=== PATIENT | female | born 1945 | race Two or more races ===

== ENCOUNTER 2024-10-27 08:52 | Emergency (ER) | payer OTHER ==
[~2024-10-27] VITALS: Ht 175.3 cm; Wt 114.2 kg
--- NOTE | 2024-10-27 10:06 | ED.PDOC ---
Musculoskeletal HPI Comments A 79 year old female presents to the ED c/o right upper thigh pain. Patient states she has been experiencing right thigh pain that and right-sided lower back pain that comes and goes. Patient reports her pain has been worse at night. Patient notes she has taken Tylenol with no improvement in her symptoms. Patient denies saddle anesthesia, urinary incontinence, bowel incontinence, dysuria, hematuria. Chief Complaint: Lower Extremity Time Seen by MD: 09:55 Reviewed Notes: Nurses Notes, Medications, Allergies Allergies: Coded Allergies: Penicillins (Verified Allergy, Unknown, 10/27/24) Information Source: Patient Mode of Arrival: Ambulatory Location: Right Extremity Location: Back, Thigh Timing: Days Prehospital treatment: None Severity: Moderate Able to Move Extremity: Yes Bear Weight: Fully Pain: Moderate Mechanism: No Trauma, Spontaneous Circumstances: Spontaneous Onset of Symptoms: Spontaneous Symptoms: Pain DVT Risk Factors: NONE Last Tetanus: Unknown Associated signs and symptoms: None Past Medical History PAST MEDICAL HISTORY: High Lipids, HTN Surgical History: Cholecystectomy, Hysterectomy 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: 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 all CATTERY OPERATOR Hx Family History Family History: Reviewed,noncontributory to illness Social History Smoker: Non-Smoker Alcohol: Denies ETOH Use Drugs: Denies Drug Use Lives In: Home Constitutional: denies: chills, diaphoresis, fatigue, fever, malaise, sweats, weakness, others EENTM: denies: blurred vision, double vision, ear bleeding, ear discharge, ear drainage, ear pain, ear ringing, eye pain, eye redness, hearing loss, mouth pain, mouth swelling, nasal discharge, nose bleeding, nose congestion, nose pain, photophobia, tearing, throat pain, throat swelling, voice changes, others Respiratory: denies: cough, hemoptysis, orthopnea, SOB at rest, shortness of breath, SOB with excertion, stridor, wheezing, others Cardiovascular: denies: chest pain, dizzy spells, diaphoresis, Dyspnea on exertion, edema, irregular heart beat, left arm pain, lightheadedness, palpitations, PND, syncope, others Gastrointestinal: denies: abdomen distended, abdominal pain, blood streaked bowels, constipated, diarrhea, dysphagia, difficulty swallowing, hematemesis, melena, nausea, poor appetite, poor fluid intake, rectal bleeding, rectal pain, vomiting, others Genitourinary: denies: abnormal vagina bleeding, burning, dyspareunia, dysuria, flank pain, frequency, hematuria, incontinence, pain, , vagina discharge, urgency, others Neurological: denies: dizziness, fainting, headache, left sided numbness, left sided weakness, numbness, paresthesia, pre-existing deficit, right sided numbness, right sided weakness, seizure, speech problems, tingling, tremors, weakness, others Musculoskeletal: reports: back pain (right lower back pain), others (right thigh pain); denies: gout, joint pain, joint swelling, muscle pain, muscle stiffness, neck pain Integumetry: denies: bruises, change in color, change in hair/nails, dryness, laceration, lesions, lumps, rash, wounds, others Allergic/Immunocompromised: denies: Difficulty Healing, Frequent Infections, Hives, Itching, others Hematologic/Lymphatic: denies: anemia, blood clots, easy bleeding, easy bruising, swollen glands, others Endocrine: denies: excessive hunger, excessive sweating, excessive thirst, excessive urination, flushing, intolerance to cold, intolerance to heat, unexplained weight gain, unexplained weight loss, others Psychiatric: denies: anxiety, bipolar disorder, depression, hopeless, panic disorder, schizophrenia, sleepless, suicidal, others All Other Systems: Reviewed and Negative Physical Exam General Appearance: No Apparent Distress, Normal HEENT: Normal ENT Inspection, Pharynx Normal, TMs Normal Neck: Full Range of Motion, Non-Tender, Normal, Normal Inspection Respiratory: Chest Non-Tender, Lungs Clear, No Accessory Muscle Use, No Respiratory Distress, Normal Breath Sounds Cardiovascular: No Edema, No JVD, No Murmur, No Gallop, Normal Peripheral Pulses, Regular Rate/Rhythm Breast Exam: Deferred Gastrointestinal: No Organomegaly, Non Tender, No Pulsatile Mass, Normal Bowel Sounds, Soft Genitalia: Deferred Pelvic: Deferred Rectal: Deferred Extremities: No calf tenderness, Normal capillary refill, No pedal edema, Other (Right straight leg test positive. Neurovascular sensation intact.) Musculoskeletal : Apperance: Normal Neurologic: Alert, supervisor alum plant II-XII nml as Tested, No Motor Deficits, Normal Affect, Normal Mood, No Sensory Deficits Cerebellar Function: Normal Reflexes: Normal Skin: Dry, Normal Color, Warm Lymphatic: No Adenopathy Was a procedure done? Was a procedure done?: No Differential Diagnosis EXT Differential Diagnosis: Deep Vein Thrombosis, DJD, Strain, Arthritis Other Differential Diagnosis superficial thrombosis X-Ray, Labs, Meds, VS Vital Signs Date Time Temp Pulse Resp B/P (MAP) Pulse Ox O2 Delivery O2 Flow Rate FiO2 10/27/24 12:00 67 14 98 Room Air 10/27/24 12:00 97.6 67 14 154/60 (91) 98 97.6 10/27/24 10:54 97.6 70 16 159/52 (87) 99 97.6 10/27/24 09:31 97.7 86 18 143/47 (79) 97 97.7 Lab Test 10/27/24 10:51 10/27/24 10:03 Range/Units White Blood Count 6.0 4.4-10.8 10^3/uL Red Blood Count 4.14 4.0-5.20 10^6/uL Hemoglobin 12.6 12.2-16.2 g/dL Hematocrit 36.7 36.0-46.0 % Mean Corpuscular Volume 88.6 80.0-100.0 fL Mean Corpuscular Hemoglobin 30.4 28.0-32.0 pg Mean Corpuscular Hemoglobin Concent 34.3 32.0-36.0 g/dL Red Cell Distribution Width 14.6 H 11.8-14.3 % Platelet Count 317 140-450 10^3/uL Mean Platelet Volume 7.6 6.9-10.8 fL Neutrophils (%) (Auto) 71.6 37.0-80.0 % Lymphocytes (%) (Auto) 20.9 10.0-50.0 % Monocytes (%) (Auto) 6.3 0.0-12.0 % Eosinophils (%) (Auto) 0.5 0.0-7.0 % Basophils (%) (Auto) 0.7 0.0-2.0 % Neutrophils # (Auto) 4.3 1.6-8.6 10 ^3/uL Lymphocytes # (Auto) 1.2 0.4-5.4 10 ^3/uL Monocytes # (Auto) 0.4 0-1.3 10 ^3/uL Eosinophils # (Auto) 0 0-0.8 10 ^3/uL Basophils # (Auto) 0 0-0.2 10 ^3/uL Nucleated Red Blood Cells 0.0 % Sodium Level 140 136-145 mmol/L Potassium Level 3.8 3.5-5.1 mmol/L Chloride Level 104 98-107 mmol/L Carbon Dioxide Level 27 20-31 mmol/L Anion Gap 9 5-15 Blood Urea Nitrogen 14 9-23 mg/dL Creatinine 1.03 H 0.550-1.02 mg/dL Glomerular Filtration Rate Calc 56 >90 mL/min BUN/Creatinine Ratio 13.6 10.0-20.0 Serum Glucose 103 74-106 mg/dL Calcium Level 11.1 H 8.7-10.4 mg/dL Urine Color Light-yellow Yellow Urine Clarity Clear Clear Urine pH 6.0 5.0-9.0 Urine Specific [place] 1.013 1.001-1.035 Urine Protein Negative Negative Urine Ketones Negative Negative Urine Blood Negative Negative /uL Urine Nitrite Negative Negative Urine Bilirubin Negative Negative Urine Urobilinogen Normal Negative mg/dL Urine Leukocyte Esterase Negative Negative /uL Urine RBC 1 0 - 4 /hpf Urine Microscopic WBC 1 0-5 /HPF Urine Squamous Epithelial Cells Few <5 /hpf Urine Bacteria None seen None Seen /hpf Urine Glucose Normal Normal mg/dL Clinical History: Leg pain Comparison: None Technique: Duplex Doppler evaluation of the deep venous system of the right lower extremity from the common femoral vein to the popliteal vein including color Doppler and spectral/pulsed waveform analysis was performed. Findings: The common femoral vein demonstrates appropriate compressibility and waveform variability. There is compressibility/patency of the great saphenous vein at the proximal thigh. The femoral vein demonstrates appropriate compressibility and waveform variability. The deep femoral vein demonstrates appropriate compressibility and waveform variability. The popliteal vein demonstrates appropriate compressibility and waveform variability. There is normal compressibility at the tibioperoneal trunk. Impression: No rightdeep venous thrombosis. If clinical concern/symptoms persist or worsen, short-interval follow-up study is suggested. ATED BY: CAPRI MIRELES MD DICTATED DATE/TIME: 10/27/24 105 SIGNED BY: CAPRI MIRELES MD SIGNED DATE/TIME: 10/27/24 105 CC: X-Ray, Labs, Meds, VS Comment A 79 year old female presents to the ED c/o right thigh pain for the past 2 days. Patient arrives alert and oriented, ABC's intact, afebrile, vital signs stable, saturating well in room air Peripheral IV insertion+ labs were ordered. CBC was ordered to exclude anemia, blood loss, or infection. BMP was ordered to exclude electrolyte abnormalities, renal failure, dehydration, hyperglycemia Urinalysis was ordered to rule out UTI or hematuria. Diagnostic imaging ordered by me and results interpreted by radiology : RT lower DVT: [Impression: No rightdeep venous thrombosis. If clinical concern/symptoms persist or worsen, short-interval follow-up study is suggested. ] Labs in the ED showed: Creatine 1.03 and GFR 56 Given patient's history and exam: Sciatica, cord compression, cauda equina, aortic dissection, Guillain-[place] syndrome, epidural hematoma/abscess were all considered. Patient not toxic or ill-appearing. Vital signs within acceptable limits. Positive straight leg raise on exam with tenderness to the buttock consistent with sciatica. No vertebral point tenderness noted over the T or L- spine. No paraspinal muscle tenderness noted. No fever or IV drug use the. The differential for an acute vascular, neurologic, malignant, or infectious etiologies is much less likely given his/her presentation. The patient does not warrant a radiological exam at this time. Advised patient to try to take tylenol to help with inflammation of the sciatic nerve and surrounding tissues and should try to do low back stretches but also try to rest and avoid excessive sitting and bending. On reassessment, the patient's symptoms improved, and patient was able to ambulate without assistive devices. The patient will f/u with PMD to see if his/her symptoms skye. An MRI may need to be ordered if the symptoms worsen or do not improve over time. The patient was counseled in regard to the diagnosis and management of the condition and verbalized understanding of this. The patient understands to return to the ER or seek immediate medical attention if the symptoms worsen or return. Additional MDM Review of External, Non-ED records: External records reviewed. Discussion with independent historian history obtained from the patient Chronic conditions affecting care: None Social determinants of health affecting care: None Consideration of admission (observation or admission): I considered escalation of care to admission for this patient, however given the reassuring workup, the patient is safe for outpatient management. Discussion with the Radiology: No Tests considered but not performed: None Prescription medication considered but not given: Images Reviewed?: Images reviewed and evaluated by me Time of 1ST Reevaluation: 11:44 Reevaluation 1ST: Improved Patient Education/Counseling: Diagnosis, Treatment, Need For Follow Up Family Education/Counseling: Diagnosis, Treatment, Need For Follow Up Departure 1 Departure Time of Disposition: 11:44 Impression: Primary Impression: Lumbar radiculopathy Additional Impression: CKD (chronic kidney disease) Qualified Codes: N18.31 - Chronic kidney disease, stage 3a Disposition: HOME / SELF CARE / HOMELESS Condition: Fair Additional Instructions: Follow up with PCP in 1-2 days. Take medications as prescribed. Return to ED for any new or worsening symptoms. Discharged With: Self Critical Care Note Critical Care Time?: No Stability Stability form required: No Heart Score Heart Score: Heart Score Response (Comments) Value History N/A 0 EKG N/A 0 Age N/A 0 Risk Factors N/A 0 Troponin N/A 0 Total 0 I personally scribed for CONSUELO ALEJANDRA HARVESTER OPERATOR ([email or web address]) on 10/27/24 at 10:06. Electronically submitted by Edwin Heaton ([employer]). I personally scribed for CONSUELO ALEJANDRA HARVESTER OPERATOR ([email or web address]) on 10/27/24 at 10:23. Electronically submitted by Edwin Heaton ([employer] [facility]). I personally scribed for CONSUELO ALEJANDRA HARVESTER OPERATOR ([email or web address]) on 10/27/24 at 11:33. Electronically submitted by Edwin Heaton ([facility] [facility]). CONSUELO ALEJANDRA NP Oct 27, 2024 10:06
[2024-10-27 10:32] LABS: Urine Protein, UAD Negative (Negative)
--- NOTE | 2024-10-27 10:54 | DVH ---
Clinical History: Leg pain Comparison: None Technique: Duplex Doppler evaluation of the deep venous system of the right lower extremity from the common femo ral vein to the popliteal vein including color Doppler and spectral/pulsed waveform analysis was perf ormed. Findings: The common femoral vein demonstrates appropriate compressibility and waveform variability. There is compressibility/patency of the great saphenous vein at the proximal thigh. The femoral vein demonstrates appropriate compressibility and waveform variability. The deep femoral vein demonstrates appropriate compressibility and waveform variability. The popliteal vein demonstrates appropriate compressibility and waveform variability. There is normal compressibility at the tibioperoneal trunk. Impression: No rightdeep venous thrombosis. If clinical concern/symptoms persist or worsen, short-interval follow-up study is suggested.
[2024-10-27 11:12] LABS: Hematocrit 36.7 % (36.0-46.0); Hemoglobin 12.6 g/dL (12.2-16.2); Mean Corpuscular Hemoglobin 30.4 pg (28.0-32.0); Mean Corpuscular Volume 88.6 fL (80.0-100.0); Nucleated Red Blood Cells % 0.0 %
[2024-10-27 11:21] LABS: Chloride 104 mmol/L (98-107); Potassium 3.8 mmol/L (3.5-5.1); Sodium 140 mmol/L (136-145)
[2024-10-27 11:22] LABS: Anion Gap 9 (5-15); Carbon Dioxide 27 mmol/L (20-31)
[2024-10-27 11:27] LABS: BUN/Creatinine Ratio 13.6 (10.0-20.0); Blood Urea Nitrogen 14 mg/dL (9-23); Glucose 103 mg/dL (74-106)
[2024-10-27 11:37] LABS: Calcium 11.1 mg/dL (8.7-10.4)
[2024-10-27 12:00] VITALS: BP 154/60; PULSE 67; RESP 14; TEMP 97.6; O2SAT 98
== END 2024-10-27 12:03 | disposition home or self-care (01) ==
LOC: ER 08:52
DX: M54.16 Radiculopathy, lumbar region (principal); I12.9 Hypertensive chronic kidney disease with stage 1 through stage 4 chronic kidney disease, or unspecified chronic kidney disease; N18.9 Chronic kidney disease, unspecified; M79.651 Pain in right thigh; E78.5 Hyperlipidemia, unspecified; Z90.49 Acquired absence of other specified parts of digestive tract; Z90.710 Acquired absence of both cervix and uterus; Z88.0 Allergy status to penicillin
CPT/HCPCS: 36415; 80048; 81001; 85025; 93971

== ENCOUNTER 2024-10-30 22:27 | Emergency (ER) | payer OTHER ==
[~2024-10-30] VITALS: Ht 172.7 cm; Wt 112.7 kg
--- NOTE | 2024-10-30 22:58 | ED.PDOC ---
General HPI Comments 79-year-old female with a history of arthritis, hypertension, dyslipidemia and CKD brought in by family complaining of right-sided low back pain radiating to the right flank/right lower quadrant. Patient states for past 2 days, she has been experiencing intermittent episodes of aching right low back pain and flank pain, radiating to her right lower quadrant. She denies any fever, nausea, vomiting, constipation, diarrhea or dysuria. Patient was seen here 3 days ago and was diagnosed with lumbosacral strain/sciatica. No spine imaging was performed. Chief Complaint: Flank pain Time Seen by MD: 22:57 Reviewed notes: Nurses Notes Allergies: Coded Allergies: Penicillins (Verified Allergy, Unknown, 10/27/24) Information Source: Patient Mode of Arrival: Ambulatory Severity: Moderate Inability to void: Mild Timing: Days Duration: Intermittent Onset: Spontaneous Location: (R) Flank associated signs and symptoms: Abdominal Pain, Flank Pain Past Medical History PAST MEDICAL HISTORY: Arthritis, CKF, High Lipids, HTN Past Medical History (Other): Sciatica Surgical History: Cholecystectomy, Hysterectomy Surgical History (Other): Bladder surgery. Knee surgery [employer] History: Denies all [employer] Hx Family History Family History: Reviewed,noncontributory to illness Social History Smoker: Non-Smoker Alcohol: Denies ETOH Use Drugs: Denies Drug Use Lives In: Home Constitutional: denies: chills, diaphoresis, fatigue, fever, malaise, sweats, weakness, others EENTM: denies: blurred vision, double vision, ear bleeding, ear discharge, ear drainage, ear pain, ear ringing, eye pain, eye redness, hearing loss, mouth pain, mouth swelling, nasal discharge, nose bleeding, nose congestion, nose pain, photophobia, tearing, throat pain, throat swelling, voice changes, others Respiratory: denies: cough, hemoptysis, orthopnea, SOB at rest, shortness of breath, SOB with excertion, stridor, wheezing, others Cardiovascular: denies: chest pain, dizzy spells, diaphoresis, Dyspnea on exertion, edema, irregular heart beat, left arm pain, lightheadedness, palpitations, PND, syncope, others Gastrointestinal: reports: abdominal pain; denies: abdomen distended, blood streaked bowels, constipated, diarrhea, dysphagia, difficulty swallowing, hematemesis, melena, nausea, poor appetite, poor fluid intake, rectal bleeding, rectal pain, vomiting, others Genitourinary: reports: flank pain; denies: abnormal vagina bleeding, burning, dyspareunia, dysuria, frequency, hematuria, incontinence, pain, , vagina discharge, urgency, others Neurological: denies: dizziness, fainting, headache, left sided numbness, left sided weakness, numbness, paresthesia, pre-existing deficit, right sided numbness, right sided weakness, seizure, speech problems, tingling, tremors, weakness, others Musculoskeletal: denies: back pain, gout, joint pain, joint swelling, muscle pain, muscle stiffness, neck pain, others Integumetry: denies: bruises, change in color, change in hair/nails, dryness, laceration, lesions, lumps, rash, wounds, others Allergic/Immunocompromised: denies: Difficulty Healing, Frequent Infections, Hives, Itching, others Hematologic/Lymphatic: denies: anemia, blood clots, easy bleeding, easy b ruising, swollen glands, others Endocrine: denies: excessive hunger, excessive sweating, excessive thirst, excessive urination, flushing, intolerance to cold, intolerance to heat, unexplained weight gain, unexplained weight loss, others Psychiatric: denies: anxiety, bipolar disorder, depression, hopeless, panic disorder, schizophrenia, sleepless, suicidal, others Physical Exam General Appearance: No Apparent Distress, Obese HEENT: Other (Pupils and face symmetric. Moist mucous membranes.) Neck: Full Range of Motion, Normal Inspection Respiratory: Lungs Clear, No Accessory Muscle Use, No Respiratory Distress, Normal Breath Sounds Cardiovascular: No Edema, No JVD, Regular Rate/Rhythm Breast Exam: Deferred Gastrointestinal: RLQ, Soft Genitalia: Deferred Pelvic: Deferred Rectal: Deferred Extremities: Normal inspection, Normal range of motion, Non-tender, No pedal edema Neurologic: Alert (Oriented x4), Normal Affect, Normal Mood, Other (Ambulatory) Cerebellar Function: NOT DONE Reflexes: NOT DONE Skin: Dry, Normal Color, Warm Lymphatic: NOT DONE Was a procedure done? Was a procedure done?: No Differential Diagnosis Kidney stone (Female): Appendicitis, Musculoskeletal pain, Pyelonephritis, Renal failure, Strain, Urinary obstruction, Urolithiasis Urinary Problem (Female): Pyelonephritis, Urinary retention, Urolithiasis, UTI X-Ray, Labs, Meds, VS Vital Signs Date Time Temp Pulse Resp B/P (MAP) Pulse Ox O2 Delivery O2 Flow Rate FiO2 10/31/24 01:10 Room Air* 0 21 10/31/24 01:10 97.3 62 14 151/57 (88) 98 97.3 10/31/24 00:09 66 14 140/58 10/30/24 23:40 74 16 148/57 10/30/24 23:16 Room Air* 0 21 10/30/24 23:16 97.5 74 16 148/57 (87) 98 97.5 10/30/24 23:03 97.5 74 16 148/57 (87) 98 97.5 Lab Test 10/30/24 23:09 10/30/24 23:06 Range/Units Urine Color Light-yellow Yellow Urine Clarity Clear Clear Urine pH 5.0 5.0-9.0 Urine Specific [place] 1.010 1.001-1.035 Urine Protein Negative Negative Urine Ketones Negative Negative Urine Blood Negative Negative /uL Urine Nitrite Negative Negative Urine Bilirubin Negative Negative Urine Urobilinogen Normal Negative mg/dL Urine Leukocyte Esterase Negative Negative /uL Urine RBC 1 0 - 4 /hpf Urine Microscopic WBC 1 0-5 /HPF Urine Squamous Epithelial Cells Few <5 /hpf Urine Bacteria None seen None Seen /hpf Urine Glucose Normal Normal mg/dL White Blood Count 9.7 # 4.4-10.8 10^3/uL Red Blood Count 4.25 4.0-5.20 10^6/uL Hemoglobin 12.9 12.2-16.2 g/dL Hematocrit 37.4 36.0-46.0 % Mean Corpuscular Volume 88.0 80.0-100.0 fL Mean Corpuscular Hemoglobin 30.4 28.0-32.0 pg Mean Corpuscular Hemoglobin Concent 34.5 32.0-36.0 g/dL Red Cell Distribution Width 14.7 H 11.8-14.3 % Platelet Count 344 140-450 10^3/uL Mean Platelet Volume 7.2 6.9-10.8 fL Neutrophils (%) (Auto) 69.0 37.0-80.0 % Lymphocytes (%) (Auto) 21.4 10.0-50.0 % Monocytes (%) (Auto) 8.4 0.0-12.0 % Eosinophils (%) (Auto) 0.4 0.0-7.0 % Basophils (%) (Auto) 0.8 0.0-2.0 % Neutrophils # (Auto) 6.7 1.6-8.6 10 ^3/uL Lymphocytes # (Auto) 2.1 0.4-5.4 10 ^3/uL Monocytes # (Auto) 0.8 0-1.3 10 ^3/uL Eosinophils # (Auto) 0 0-0.8 10 ^3/uL Basophils # (Auto) 0.1 0-0.2 10 ^3/uL Nucleated Red Blood Cells 0.2 % Sodium Level 135 #L 136-145 mmol/L Potassium Level 4.1 3.5-5.1 mmol/L Chloride Level 101 98-107 mmol/L Carbon Dioxide Level 25 20-31 mmol/L Anion Gap 9 5-15 Blood Urea Nitrogen 15 9-23 mg/dL Creatinine 1.08 H 0.550-1.02 mg/dL Glomerular Filtration Rate Calc 53 >90 mL/min BUN/Creatinine Ratio 13.9 10.0-20.0 Serum Glucose 108 H 74-106 mg/dL Calcium Level 10.4 8.7-10.4 mg/dL Current Medications Medications (Trade) Dose Ordered Sig/Presley Route Start Time Stop Time Status Last Admin Morphine Sulfate 4 mg ONCE ONCE IV 10/30/24 23:00 10/30/24 23:01 DC 10/30/24 23:40 Ondansetron HCl (Zofran) 4 mg ONCE ONCE IV 10/30/24 23:00 10/30/24 23:01 DC 10/30/24 23:40 PROCEDURE(s): LS2CT - LS SPINE WO CONTRAST REASON: R low back pain radiating to RLQ and RLE ORDER NUMBER(s): [id number], ACCESSION NUMBER(s): [id number] CLINICAL HISTORY: R low back pain radiating to RLQ and RLE TECHNIQUE: CT of the lumbar spine was performed without intravenous contrast. This exam was performed according to our departmental dose optimization program. Up-to-date CT equipment and radiation dose reduction techniques are utilized as appropriate. CTDI: 33.76 DLP: 1493.77 WID: COMPARISON: None FINDINGS: There are 5 [id number] lumbar type vertebral bodies. There is grade 1 anterolisthesis at L4-L5 and L5-S1, otherwise normal alignment. Slight bony demineralization. No acute fracture. There is multilevel degenerative disc disease and osteophyte formation of the lumbar spine. Multilevel facet hypertrophy. At L3-L4 there is a diffuse disc bulge, ligamentum flavum thickening, and facet hypertrophy resulting in moderate spinal stenosis and mode rate bilateral neural foraminal stenosis. At L4-L5, there is a diffuse disc bulge, moderate facet hypertrophy, ligamentum flavum thickening resulting in moderate spinal stenosis and moderate bilateral neural foraminal stenosis. No high-grade stenosis is otherwise seen. Prior cholecystectomy. Posterior paraspinal soft tissues are intact. Calcified plaque in the aortoiliac vessels. There is moderate distal colonic diverticulosis. IMPRESSION: No acute fracture or traumatic malalignment. Multilevel degenerative change of the lumbar spine greatest at L3-L4 and L4-L5 where there is moderate spinal stenosis and moderate bilateral neural foraminal stenosis at these levels. EDURE(s): ABPL - CT AB PEL WO CON-NO ORAL OR IV REASON: R flank pain radiating to rlq ORDER NUMBER(s): [id number], ACCESSION NUMBER(s): [id number] CLINICAL HISTORY: R flank pain radiating to rlq TECHNIQUE: CT of the abdomen and pelvis was performed without intravenous contrast. This exam was performed according to our departmental dose optimization program. Up-to-date CT equipment and radiation dose reduction techniques are utilized as appropriate. CTDI: 22.86+ 0.14 DLP: 1178.08 WID: COMPARISON: None FINDINGS: Lower Thorax: Sub 5 mm nodule in the right lower lobe on series 3, image 9 otherwise lung bases are clear. Normal-sized heart. Small pericardial fluid. Small hiatal hernia. At least mild 3-vessel calcified coronary artery disease and mild aortic valve calcification. Liver and Biliary system: Prior cholecystectomy, otherwise unremarkable. Spleen: Unremarkable. Adrenal Glands and Kidneys: Normal adrenal glands. Slightly small bilateral kidneys. No hydronephrosis or nephrolithiasis. Small bilateral renal hypodensities and a few high density right renal lesions, likely a combination of hemorrhagic and simple cysts although not optimally evaluated without contrast. Pancreas and Retroperitoneum: Mildly atrophic pancreas. No retroperitoneal lymphadenopathy. Aorta and Major Vessels: Aortoiliac vessels are normal caliber. Moderate calcified plaque in the abdominal aorta. Bowel, Mesentery and Peritoneal space: Normal caliber small and large bowel. Moderate predominantly distal colonic diverticulosis. Normal appendix. There is no free air or fluid collection. Pelvis: Prior hysterectomy. Decompressed urinary bladder. There is no pelvic lymphadenopathy. Abdominal wall and Osseous Structures: Multilevel lower thoracic and lumbar spondylosis. No destructive osseous lesion. IMPRESSION: No hydronephrosis or nephrolithiasis. There are tiny low-density bilateral renal lesions as well as a few high density right renal lesions which may be combination of simple and hemorrhagic cysts although not optimally evaluated without contrast. Mild 3-vessel calcified coronary artery disease and mild aortic valve calcification. Colonic diverticulosis, moderate distally. X-Ray, Labs, Meds, VS Comment 79-year-old female with a history of arthritis, CKD, hypertension and hyperlipidemia brought in by family for evaluation of right low back pain radiating to the right flank Vitals remarkable for BP 148 over 57 Exam remarkable for right lumbar paraspinal tenderness and right lower quadrant tenderness Rhythm strip independently interpreted by me: Sinus rhythm, rate 74, no ectopy. CT abdomen and pelvis IMPRESSION: No hydronephrosis or nephrolithiasis. There are tiny low-density bilateral renal lesions as well as a few high density right renal lesions which may be combination of simple and hemorrhagic cysts although not optimally evaluated without contrast. Mild 3-vessel calcified coronary artery disease and mild aortic valve calcification. Colonic diverticulosis, moderate distally. CT lumbar spine: IMPRESSION: No acute fracture or traumatic malalignment. Multilevel degenerative change of the lumbar spine greatest at L3-L4 and L4-L5 where there is moderate spinal stenosis and moderate bilateral neural foraminal stenosis at these levels. CBC unremarkable, basic metabolic panel remarkable for sodium 135, creatinine 1.08, UA unremarkable Patient treated with the following in the ED: Morphine 4 mg IV, Zofran 4 mg IV, dexamethasone 10 mg IV On re-evaluation, patient states pain has improved. Vitals were stable. Hospitalization was considered for pain control and MRI in the morning, however patient stated she did not want to be admitted and would prefer to follow-up with her primary physician for outpatient MRI. She also stated her pain was well controlled, and she was ambulatory without difficulty. I no longer feel hospitalization is necessary. Patient now appears stable for discharge with close outpatient follow-up with her primary physician. Rx Kaleigh Dupont Time of 1ST Reevaluation: 22:52 Reevaluation 1ST: Unchanged Patient Education/Counseling: Diagnosis, Treatment Family Education/Counseling: No Family Present SEPSIS Sepsis Screen Physician Orders Ct Ab Pel Wo Con-No Oral Or Iv (10/30/24 22:54) Ls Spine Wo Contrast (10/30/24 22:54) Vital Signs Date Time Temp Pulse Resp B/P (MAP) Pulse Ox O2 Delivery O2 Flow Rate FiO2 10/31/24 01:10 Room Air* 0 21 10/31/24 01:10 97.3 62 14 151/57 (88) 98 97.3 10/31/24 00:09 66 14 140/58 10/30/24 23:40 74 16 148/57 10/30/24 23:16 Room Air* 0 21 10/30/24 23:16 97.5 74 16 148/57 (87) 98 97.5 10/30/24 23:03 97.5 74 16 148/57 (87) 98 97.5 Laboratory Tests Test 10/30/24 23:06 White Blood Count 9.7 10^3/uL (4.4-10.8) # Medications Medications Dose Ordered Sig/Presley Route Start Time Stop Time Status Last Admin Dose Admin Morphine Sulfate 4 mg ONCE ONCE IV 10/30/24 23:00 10/30/24 23:01 DC 10/30/24 23:40 Ondansetron HCl 4 mg ONCE ONCE IV 10/30/24 23:00 10/30/24 23:01 DC 10/30/24 23:40 Departure 1 Departure Time of Disposition: 01:49 Impression: Primary Impression: Lumbar radiculopathy Disposition: 01 HOME / SELF CARE / HOMELESS Condition: Stable Additional Instructions: Your blood and urine tests were unremarkable. Your CT scan showed degenerative changes of your lower spine, which are likely to be the cause of your pain. I have prescribed pain medication and muscle relaxers. Follow-up with your primary doctor in 1-2 days for referral for outpatient MRI of your spine and referral to a building specialist. [address] [address] Ph: [phone] DIAGNOSTIC IMAGING Diagnostic Imaging Report : [id number] Signed PATIENT: ROLLY NAVARRETE ACCT: [id number] UNIT: [id number] : 1945 LOC: ER ROOM / BED: / AGE / SEX: 79 / F ADM STATUS: REG ER SERVICE [id number] ORDERING PHYSICIAN: BOBBY CORREA MD PROCEDURE(s): LS2CT - LS SPINE WO CONTRAST REASON: R low back pain radiating to RLQ and RLE ORDER NUMBER(s): [id number], ACCESSION NUMBER(s): [id number] CLINICAL HISTORY: R low back pain radiating to RLQ and RLE TECHNIQUE: CT of the lumbar spine was performed without intravenous contrast. This exam was performed according to our departmental dose optimization program. Up-to-date CT equipment and radiation dose reduction techniques are utilized as appropriate. CTDI: 33.76 DLP: 1493.77 WID: COMPARISON: None FINDINGS: There are 5 [id number] lumbar type vertebral bodies. There is grade 1 anterolisthesis at L4-L5 and L5-S1, otherwise normal alignment. Slight bony demineralization. No acute fracture. There is multilevel degenerative disc disease and osteophyte formation of the lumbar spine. Multilevel facet hypertrophy. At L3-L4 there is a diffuse disc bulge, ligamentum flavum thickening, and facet hypertrophy resulting in moderate spinal stenosis and moderate bilateral neural foraminal stenosis. At L4-L5, there is a diffuse disc bulge, moderate facet hypertrophy, ligamentum flavum thickening resulting in moderate spinal stenosis and moderate bilateral neural foraminal stenosis. No high-grade stenosis is otherwise seen. Prior cholecystectomy. Posterior paraspinal soft tissues are intact. Calcified plaque in the aortoiliac vessels. There is moderate distal colonic diverticulosis. IMPRESSION: No acute fracture or traumatic malalignment. Multilevel degenerative change of the lumbar spine greatest at L3-L4 and L4-L5 where there is moderate spinal stenosis and moderate bilateral neural foraminal stenosis at these levels. [place] [address] Ph: [phone] DIAGNOSTIC IMAGING Diagnostic Imaging Report : [id number] Signed PATIENT: ROLLY NAVARRETE ACCT: [id number] UNIT: [id number] : 1945 LOC: ER ROOM / BED: / AGE / SEX: 79 / F ADM STATUS: REG ER SERVICE [id number] ORDERING PHYSICIAN: BOBBY CORREA MD PROCEDURE(s): ABPL - CT AB PEL WO CON-NO ORAL OR IV REASON: R flank pain radiating to rlq ORDER NUMBER(s): [id number], ACCESSION NUMBER(s): [id number] CLINICAL HISTORY: R flank pain radiating to rlq TECHNIQUE: CT of the abdomen and pelvis was performed without intravenous contrast. This exam was performed according to our departmental dose optimization program. Up-to-date CT equipment and radiation dose reduction techniques are utilized as appropriate. CTDI: 22.86+ 0.14 DLP: 1178.08 WID: COMPARISON: None FINDINGS: Lower Thorax: Sub 5 mm nodule in the right lower lobe on series 3, image 9 otherwise lung bases are clear. Normal-sized heart. Small pericardial fluid. Small hiatal hernia. At least mild 3-vessel calcified coronary artery disease and mild aortic valve calcification. Liver and Biliary system: Prior cholecystectomy, otherwise unremarkable. Spleen: Unremarkable. Adrenal Glands and Kidneys: Normal adrenal glands. Slightly small bilateral kidneys. No hydronephrosis or nephrolithiasis. Small bilateral renal hypodensi ties and a few high density right renal lesions, likely a combination of hemorrhagic and simple cysts although not optimally evaluated without contrast. Pancreas and Retroperitoneum: Mildly atrophic pancreas. No retroperitoneal lymphadenopathy. Aorta and Major Vessels: Aortoiliac vessels are normal caliber. Moderate calcified plaque in the abdominal aorta. Bowel, Mesentery and Peritoneal space: Normal caliber small and large bowel. Moderate predominantly distal colonic diverticulosis. Normal appendix. There is no free air or fluid collection. Pelvis: Prior hysterectomy. Decompressed urinary bladder. There is no pelvic lymphadenopathy. Abdominal wall and Osseous Structures: Multilevel lower thoracic and lumbar spondylosis. No destructive osseous lesion. IMPRESSION: No hydronephrosis or nephrolithiasis. There are tiny low-density bilateral renal lesions as well as a few high density right renal lesions which may be combination of simple and hemorrhagic cysts although not optimally evaluated without contrast. Mild 3-vessel calcified coronary artery disease and mild aortic valve calcification. Colonic diverticulosis, moderate distally. e-Prescriptions Hydrocodone-Acetaminophen (Hydrocodone Bitartrate/AC 5-325 mg) 1 Tab Tab 1 TAB PO Q6HP PRN, #20 TAB Prov: BOBBY CORREA MD 10/31/24 Discharged With: Relative Critical Care Note Critical Care Time?: No Stability Stability form required: No Heart Score Heart Score: Heart Score Response (Comments) Value History N/A 0 EKG N/A 0 Age N/A 0 Risk Factors N/A 0 Troponin N/A 0 Total 0 I personally scribed for BOBBY CORREA MD ([email or web address]) on 10/30/24 at 22:58. Electronically submitted by Rafael Gay ([facility]). BOBBY CORREA MD Oct 30, 2024 22:58
[2024-10-30 23:15] LABS: Hematocrit 37.4 % (36.0-46.0); Hemoglobin 12.9 g/dL (12.2-16.2); Mean Corpuscular Hemoglobin 30.4 pg (28.0-32.0); Mean Corpuscular Volume 88.0 fL (80.0-100.0); Nucleated Red Blood Cells % 0.2 %
[2024-10-30 23:23] LABS: Urine Protein, UAD Negative (Negative)
[2024-10-30 23:25] LABS: Anion Gap 9 (5-15); Carbon Dioxide 25 mmol/L (20-31); Chloride 101 mmol/L (98-107); Potassium 4.1 mmol/L (3.5-5.1)
[2024-10-30 23:26] LABS: Calcium 10.4 mg/dL (8.7-10.4)
[2024-10-30 23:31] LABS: BUN/Creatinine Ratio 13.9 (10.0-20.0); Blood Urea Nitrogen 15 mg/dL (9-23)
[2024-10-30 23:32] LABS: Glucose 108 mg/dL (74-106); Sodium 135 mmol/L (136-145)
[2024-10-30] MEDS: MORPHINE SULFATE 4 MG/ML SYR/VIAL IV ONE (23:40)
[2024-10-30] MEDS: ONDANSETRON HCL 4 MG/2 ML VIAL IV ONE (23:40)
[2024-10-31 01:10] VITALS: BP 151/57; PULSE 62; RESP 14; TEMP 97.3; O2SAT 98
--- NOTE | 2024-10-31 01:21 | DVH ---
CLINICAL HISTORY: R flank pain radiating to rlq TECHNIQUE: CT of the abdomen and pelvis was performed without intravenous contrast. This exam was per formed according to our departmental dose optimization program. Up-to-date CT equipment and radiation dose reduction techniques are utilized as appropriate. CTDI: 22.86+ 0.14 DLP: 1178.08 WID: COMPARISON: None FINDINGS: Lower Thorax: Sub 5 mm nodule in the right lower lobe on series 3, image 9 otherwise lung bases are c lear. Normal-sized heart. Small pericardial fluid. Small hiatal hernia. At least mild 3-vessel calc ified coronary artery disease and mild aortic valve calcification. Liver and Biliary system: Prior cholecystectomy, otherwise unremarkable. Spleen: Unremarkable. Adrenal Glands and Kidneys: Normal adrenal glands. Slightly small bilateral kidneys. No hydronephrosi s or nephrolithiasis. Small bilateral renal hypodensities and a few high density right renal lesions, likely a combination of hemorrhagic and simple cysts although not optimally evaluated without contra st. Pancreas and Retroperitoneum: Mildly atrophic pancreas. No retroperitoneal lymphadenopathy. Aorta and Major Vessels: Aortoiliac vessels are normal caliber. Moderate calcified plaque in the abd ominal aorta. Bowel, Mesentery and Peritoneal space: Normal caliber small and large bowel. Moderate predominantly d istal colonic diverticulosis. Normal appendix. There is no free air or fluid collection. Pelvis: Prior hysterectomy. Decompressed urinary bladder. There is no pelvic lymphadenopathy. Abdominal wall and Osseous Structures: Multilevel lower thoracic and lumbar spondylosis. No destructi ve osseous lesion. IMPRESSION: No hydronephrosis or nephrolithiasis. There are tiny low-density bilateral renal lesions as well as a few high density right renal lesions which may be combination of simple and hemorrhagic cysts although not optimally evaluated without con trast. Mild 3-vessel calcified coronary artery disease and mild aortic valve calcification. Colonic diverticulosis, moderate distally.
--- NOTE | 2024-10-31 01:28 | DVH ---
CLINICAL HISTORY: R low back pain radiating to RLQ and RLE TECHNIQUE: CT of the lumbar spine was performed without intravenous contrast. This exam was performed according to our departmental dose optimization program. Up-to-date CT equipment and radiation dose reduction techniques are utilized as appropriate. CTDI: 33.76 DLP: 1493.77 WID: COMPARISON: None FINDINGS: There are 5 [id number]-[id number] lumbar type vertebral bodies. There is grade 1 anterolisthesis at L4-L5 a nd L5-S1, otherwise normal alignment. Slight bony demineralization. No acute fracture. There is mult ilevel degenerative disc disease and osteophyte formation of the lumbar spine. Multilevel facet hype rtrophy. At L3-L4 there is a diffuse disc bulge, ligamentum flavum thickening, and facet hypertrophy resulting in moderate spinal stenosis and moderate bilateral neural foraminal stenosis. At L4-L5, the re is a diffuse disc bulge, moderate facet hypertrophy, ligamentum flavum thickening resulting in mod erate spinal stenosis and moderate bilateral neural foraminal stenosis. No high-grade stenosis is oth erwise seen. Prior cholecystectomy. Posterior paraspinal soft tissues are intact. Calcified plaque in the aortoi liac vessels. There is moderate distal colonic diverticulosis. IMPRESSION: No acute fracture or traumatic malalignment. Multilevel degenerative change of the lumbar spine greatest at L3-L4 and L4-L5 where there is moderat e spinal stenosis and moderate bilateral neural foraminal stenosis at these levels.
[2024-10-31] MEDS ORDERED: HYDR-4902 PO (01:58)
== END 2024-10-31 02:45 | disposition home or self-care (01) ==
LOC: ER 22:27
DX: M54.16 Radiculopathy, lumbar region (principal); I12.9 Hypertensive chronic kidney disease with stage 1 through stage 4 chronic kidney disease, or unspecified chronic kidney disease; N18.9 Chronic kidney disease, unspecified; E78.5 Hyperlipidemia, unspecified; M19.90 Unspecified osteoarthritis, unspecified site; Z90.49 Acquired absence of other specified parts of digestive tract; Z90.710 Acquired absence of both cervix and uterus; Z98.890 Other specified postprocedural states; Z88.0 Allergy status to penicillin
CPT/HCPCS: 36415; 72131; 74176; 80048; 81001; 85025; 96374; 96375; 99285; J1100; J2270; J2405